=== PATIENT | female | born 1940 | race Caucasian/White ===

== ENCOUNTER 2017-09-29 19:51 | Emergency (ER) | payer MEDICARE, BC, OTHER ==
[2017-09-29 20:26] LABS: BASO % 0.2 % (0-6); EOS % 0.5 % (0-6); GRAN % 59.6 % (47-80); HEMATOCRIT 40.9 % (35.0-47.0); HEMOGLOBIN 13.8 gm/dl (11.6-16.0); LYMPH % 29.7 % (16-45); MEAN CELL VOLUME 90.7 fl (81-97); MEAN CORPUSCULAR HEMOGLOBIN 30.6 pg (27-33); MEAN CORPUSCULAR HGB CONC 33.7 g/dl (32-36); MEAN PLATELET VOLUME 11.8 fl (7.4-10.4); PLATELET COUNT 136 K/uL (130-400); RED BLOOD COUNT 4.51 M/uL (3.80-5.40); RED CELL DISTRIBUTION WIDTH 12.6 % (11.5-14.5); WHITE BLOOD COUNT W/O DIFF 4.1 K/uL (4.2-12.2)
[2017-09-29 20:36] LABS: CREATININE 1.3 mg/dL (0.5-0.9)
[2017-09-29] MEDS ORDERED: DEXTROSE 50 % IVP 50 ML DISP.SYRIN IVP ONE (20:58)
[2017-09-29 21:23] LABS: URINE APPEARANCE CLEAR; URINE BILIRUBIN NEGATIVE (NEGATIVE); URINE BLOOD NEGATIVE (NEGATIVE); URINE COLOR YELLOW; URINE GLUCOSE (UA) NEGATIVE (NEGATIVE); URINE KETONE NEGATIVE (NEGATIVE); URINE LEUKOCYTE ESTERASE SMALL (NEGATIVE); URINE NITRITE NEGATIVE (NEGATIVE); URINE PROTEIN NEGATIVE (NEGATIVE); URINE UROBILINOGEN 0.2 E.U./dL (0.20 - 1.00)
[2017-09-29 21:25] LABS: URINE BACTERIA FEW; URINE RBC 0 - 2 (NONE SEEN); URINE WBC 0 - 2 (0-2/hpf)
--- NOTE | 2017-09-29 22:25 | Emergency Department Record ---
History of Present Illness - General Chief complaint: Hypogylcemia Stated complaint: DIZZY/CONFUSION Time Seen by Provider: 09/29/17 20:15 Source: Patient, Family Mode of Arrival: Ambulatory Limitations: No limitations - History of Present Illness Initial comments: pt was brought in because she had become confused while at a restaurant. Complaint: Generalized weakness Onset/Timin -: Hour(s) Location: Generalized Associated Symptoms: Confusion - Jess Coma Scale Eye Response: (4) Open spontaneously Motor Response: (6) Obeys commands Verbal Response: (5) Oriented Jess Total: 15 - Related Data Allergies Allergy/AdvReac Type Severity Reaction Status Date / Time atenolol [From Tenormin] Allergy NAUSEA AND Verified 03/11/16 10:31 VOMITING cefprozil [From Cefzil] Allergy NAUSEA AND Verified 03/11/16 10:31 VOMITING Penicillins Allergy HIVES Verified 03/11/16 10:31 Sulfa (Sulfonamide Allergy NAUSEA Verified 03/11/16 10:31 Antibiotics) sulfamethoxazole Allergy NAUSEA AND Verified 03/11/16 10:31 [From Bactrim] VOMITING trimethoprim [From Bactrim] Allergy NAUSEA AND Verified 03/11/16 10:31 VOMITING chocolate flavor AdvReac DIARRHEA Verified 09/29/17 20:02 egg AdvReac DIARRHEA Verified 09/29/17 20:02 Travel Screening - Travel/Exposure Within Last 30 Days Have you traveled within the last 30 days?: No Review of Systems Reviewed: No additional complaints except as noted below Constitutional: Reports: As per HPI. Denies: Chills, Fever, Malaise, Night sweats, Weakness, Weight change Eyes: Reports: As per HPI. Denies: Eye discharge, Eye pain, Photophobia, Vision change ENT: Reports: As per HPI. Denies: Congestion, Dental pain, Ear pain, Epistaxis , Hearing loss, Throat pain Respiratory: Reports: As per HPI. Denies: Cough, Dyspnea, Hemoptysis, Stridor, Wheezes Cardiovascular: Reports: As per HPI. Denies: Arrhythmia, Chest pain, Dyspnea on exertion, Edema, Murmurs, Orthopnea, Palpitations, Paroxysmal nocturnal dyspnea, Rheumatic Fever, Syncope Endocrine: Reports: As per HPI. Denies: Fatigue, Heat or cold intolerance, Polydipsia, Polyuria Gastrointestinal: Reports: As per HPI. Denies: Abdominal pain, Constipation, Diarrhea, Hematemesis, Hematochezia, Melena, Nausea, Vomiting Genitourinary: Reports: As per HPI. Denies: Abnormal menses, Discharge, Dyspareunia, Dysuria, Frequency, Hematuria, Incontinence, Retention, Urgency Musculoskeletal: Reports: As per HPI. Denies: Arthralgia, Back pain, Gout, Joint swelling, Myalgia, Neck pain Skin: Reports: As per HPI. Denies: Bruising, Change in color, Change in hair/ nails, Lesions, Pruritus, Rash Neurological: Reports: As per HPI. Denies: Abnormal gait, Confusion, Headache, Numbness, Paresthesias, Seizure, Tingling, Tremors, Vertigo, Weakness Psychiatric: Reports: As per HPI. Denies: Anxiety, Auditory hallucinations, Depression, Homicidal thoughts, Suicidal thoughts, Visual hallucinations Hematological/Lymphatic: Reports: As per HPI. Denies: Anemia, Blood Clots, Easy bleeding, Easy bruising, Swollen glands Past Medical History - SOCIAL HISTORY Smoking Status: Never smoker Alcohol Use: None Drug Use: None - RESPIRATORY Hx Respiratory Disorders: Yes Hx Sleep Apnea: Yes Hx of CPAP: Yes - CARDIOVASCULAR Hx Cardio Disorders: Yes Hx Hypertension: Yes - NEURO Hx Neuro Disorders: No - GI Hx GI Disorders: Yes Comment:: constipation - Hx Genitourinary Disorders: Yes Hx UTI: Yes - ENDOCRINE Hx Endocrine Disorders: Yes Hx Diabetes: Yes (Type II) - MUSCULOSKELETAL Hx Musculoskeletal Disorders: Yes Hx Arthritis: Yes (Feet) - PSYCH Hx Psych Problems: No - HEMATOLOGY/ONCOLOGY Hx Cancer: Yes (Breast) Hx Chemotherapy: No Hx Radiation Therapy: Yes Family Medical History Any Significant Family History?: Yes Hx Heart Disease: Father, Mother, Children, Grandparents Hx HTN: Father, Mother, Children, Grandparents Physical Exam - General General Appearance: Alert, Cooperative, Mild distress, Other (pt disoriented, doesnt know date, year, birthdate) - Head Head exam: Normal inspection - Eye Eye exam: Normal appearance, PERRL, EOMI Pupils: Normal accommodation - ENT ENT exam: Normal exam, Mucous membranes moist, Normal external ear exam, Normal orophraynx Ear exam: Normal external inspection. negative: External canal tenderness Nasal Exam: Normal inspection. negative: Discharge, Sinus tenderness Mouth exam: Normal external inspection, Tongue normal Teeth exam: Normal inspection. negative: Dental caries Throat exam: Normal inspection. negative: Tonsillar erythema, Tonsillar exudate - Neck Neck exam: Normal inspection, Full ROM. negative: Tenderness - Respiratory Respiratory exam: Normal lung sounds bilaterally. negative: Respiratory distress - Cardiovascular Cardiovascular Exam: Regular rate, Normal rhythm, Normal heart sounds - GI/Abdominal GI/Abdominal exam: Soft, Normal bowel sounds. negative: Tenderness - Rectal Rectal exam: Deferred - exam: Deferred - Extremities Extremities exam: Normal inspection, Full ROM, Normal capillary refill. negative: Tenderness - Back Back exam: Reports: Normal inspection, Full ROM. Denies: Muscle spasm, Rash noted, Tenderness - Neurological Neurological exam: Alert, CN II-XII intact, Normal gait - Psychiatric Psychiatric exam: Normal affect, Normal mood - Skin Skin exam: Dry, Intact, Normal color, Warm Course Vital Signs 09/29/17 20:01 Pulse Rate 65 Respiratory 18 Rate Blood Pressure 152/74 Pulse Ox 97 - Reevaluation(s) Reevaluation #1: 09/29/17 22:32 pt is now oriented x3 since getting d50 and is talkative and cheerful Medical Decision Making - Lab Data Result diagrams: 09/29/17 20:10 09/29/17 20:10 Lab Results 09/29/17 09/29/17 09/29/17 Range/Units 19:58 20:10 20:10 WBC 4.1 L (4.2-12.2) K/uL RBC 4.51 (3.80-5.40) M/uL Hgb 13.8 (11.6-16.0) gm/dl Hct 40.9 (35.0-47.0) % MCV 90.7 (81-97) fl MCH 30.6 (27-33) pg MCHC 33.7 (32-36) g/dl RDW 12.6 (11.5-14.5) % Plt Count 136 (130-400) K/uL MPV 11.8 H (7.4-10.4) fl Gran % 59.6 (47-80) % Lymphocytes % 29.7 (16-45) % Monocytes % 10.0 H (0-9) % Eosinophils % 0.5 (0-6) % Basophils % 0.2 (0-6) % Sodium 138 (136-145) mmol/L Potassium 3.9 (3.4-4.5) mmol/L Chloride 103 (98-107) mmol/L Carbon Dioxide 21.0 L (22-29) mmol/L Anion Gap 14.0 (7-16) BUN 30 H (8-23) mg/dL Creatinine 1.3 H (0.5-0.9) mg/dL Estimated GFR 42 mL/min POC Glucose 41 L* (70-110) mg/dL Random Glucose 45 L* (74-109) mg/dL Calcium 8.9 (8.8-10.2) mg/dL Urine Color Urine Appearance Urine pH (5.0-8.0) Ur Specific Stephan (1.002-1.030) Urine Protein (NEGATIVE) Urine Glucose (UA) (NEGATIVE) Urine Ketones (NEGATIVE) Urine Blood (NEGATIVE) Urine Nitrite (NEGATIVE) Urine Bilirubin (NEGATIVE) Urine Urobilinogen (0.20 - 1.00) E.U./dL Ur Leukocyte Esterase (NEGATIVE) Urine RBC (NONE SEEN) Urine WBC (0-2/hpf) Ur Epithelial Cells (FEW) Urine Bacteria 09/29/17 09/29/17 09/29/17 Range/Units 20:55 21:24 21:53 WBC (4.2-12.2) K/uL RBC (3.80-5.40) M/uL Hgb (11.6-16.0) gm/dl Hct (35.0-47.0) % MCV (81-97) fl MCH (27-33) pg MCHC (32-36) g/dl RDW (11.5-14.5) % Plt Count (130-400) K/uL MPV (7.4-10.4) fl Gran % (47-80) % Lymphocytes % (16-45) % Monocytes % (0-9) % Eosinophils % (0-6) % Basophils % (0-6) % Sodium (136-145) mmol/L Potassium (3.4-4.5) mmol/L Chloride (98-107) mmol/L Carbon Dioxide (22-29) mmol/L Anion Gap (7-16) BUN (8-23) mg/dL Creatinine (0.5-0.9) mg/dL Estimated GFR mL/min POC Glucose 57 L 132 H (70-110) mg/dL Random Glucose (74-109) mg/dL Calcium (8.8-10.2) mg/dL Urine Color Yellow Urine Appearance Clear Urine pH 5.5 (5.0-8.0) Ur Specific Stephan 1.010 (1.002-1.030) Urine Protein Negative (NEGATIVE) Urine Glucose (UA) Negative (NEGATIVE) Urine Ketones Negative (NEGATIVE) Urine Blood Negative (NEGATIVE) Urine Nitrite Negative (NEGATIVE) Urine Bilirubin Negative (NEGATIVE) Urine Urobilinogen 0.2 (0.20 - 1.00) E.U./dL Ur Leukocyte Esterase Small H (NEGATIVE) Urine RBC 0 - 2 (NONE SEEN) Urine WBC 0 - 2 (0-2/hpf) Ur Epithelial Cells 10 - 15 (FEW) Urine Bacteria Few Disposition Disposition: Discharge Clinical Impression: Hypoglycemia associated with type 2 diabetes mellitus Disposition: Home, Self-Care Condition: (1) Good Instructions: Hypoglycemia in a Person with Diabetes (ED) Additional Instructions: follow up with family doctor on sunday about adjusting meds. eat regular meals. monitor glucose. go home and eat immediately Quality - Quality Measures Quality Measures: N/A - Blood Pressure Screening Does Patient Have Any of the Following: No Blood Pressure Classification: Hypertensive Reading Systolic Measurement: 152 Diastolic Measurement: 74 Screening for High Blood Pressure: < First Hypertensive BP, F/U Documented > [ [id number]] First Hypertensive Follow-up Interventions: Follow-up with rescreen GT 1 day and LT 4 weeks.
--- NOTE | 2017-09-30 20:04 | CT SCAN REPORT ---
EXAM: CT SCAN HEAD WO CONTRAST HISTORY: DIPLOPIA. DIZZINESS. COMPARISON: None. TECHNIQUE: Contiguous axial images from the cerebral convexities to the foramen magnum were obtained without contrast. ENCOUNTER: Initial. HAND DOMINANCE: Right. FINDINGS: Mild generalized atrophy of the brain. No acute intracranial hemorrhage, mass effect, or midline shift. Tiny lipoma near the splenium of the corpus callosum measuring 13 mm in length with a curvilinear appearance. No CT evidence of acute infarct. Hypodensity in the left lentiform nucleus, likely due to prominence perivascular CSF space measuring [address] evidence of acute infarct. Ventricles, basal cisterns, and sulci are within normal limits. Osseous structures and soft tissues are unremarkable. Mucous retention cyst right maxillary sinus measuring 14 mm. IMPRESSION: 1. NO ACUTE INTRACRANIAL PROCESS. 2. 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 JOB NUMBER: [id number] MTDD
== END 2017-09-29 22:47 | disposition home or self-care (01) ==
LOC: ER 19:51
DX: E11.649 Type 2 diabetes mellitus with hypoglycemia without coma (principal); H53.2 Diplopia; R42 Dizziness and giddiness; R53.1 Weakness; R41.0 Disorientation, unspecified; I10 Essential (primary) hypertension; E11.9 Type 2 diabetes mellitus without complications; Z79.84 Long term (current) use of oral hypoglycemic drugs
CPT/HCPCS: 36416; 70450; 80048; 81001; 82948; 85025; 93005; 93010; 96374; 99284